=== PATIENT | male | born 1980 | race Two or more races ===

== ENCOUNTER → 2022-03-08 | Emergency (ER) | payer MEDICAID, OTHER ==
[~2022-03-08] VITALS: Ht 188 cm; Wt 130.0 kg
[~2022-03-08] MED LIST: KETOROLAC TROMETH 30 MG/ML 1ML VIAL IV ONE
[2022-03-08 23:01] VITALS: BP 120/74
== END | disposition home or self-care (01) ==
LOC: ER 21:16 → EDBD 21:16
DX: S30.811A Abrasion of abdominal wall, initial encounter (principal); S20.311A Abrasion of right front wall of thorax, initial encounter; S50.812A Abrasion of left forearm, initial encounter; S00.81XA Abrasion of other part of head, initial encounter; S20.412A Abrasion of left back wall of thorax, initial encounter; S80.212A Abrasion, left knee, initial encounter; S80.211A Abrasion, right knee, initial encounter; S50.311A Abrasion of right elbow, initial encounter; S40.212A Abrasion of left shoulder, initial encounter; S40.211A Abrasion of right shoulder, initial encounter; S60.811A Abrasion of right wrist, initial encounter; R51.9 Headache, unspecified; M54.2 Cervicalgia; V29.9XXA Motorcycle rider (driver) (passenger) injured in unspecified traffic accident, initial encounter; Y93.89 Activity, other specified; Y92.89 Other specified places as the place of occurrence of the external cause; Y99.8 Other external cause status
CPT/HCPCS: 70450; 71250; 72125; 74176; 96374; 99284; J1885